=== PATIENT | male | born 1965 | race Caucasian/White ===

== ENCOUNTER 2019-05-09 10:37 | Emergency (ER) | payer OTHER ==
[2019-05-09 10:45] VITALS: BP 177/95; PULSE 67; TEMP 97.7; BMI 28.3
--- NOTE | 2019-05-09 11:10 | PDOC ---
History of Present Illness - General Chief Complaint: Pain Stated Complaint: RT FOOT PAIN Time Seen by Provider: 05/09/19 10:56 History Source: Patient Exam Limitations: No Limitations Past History - Travel Traveled outside of the country in the last 30 days: No Close contact w/someone who was outside of country & ill: No - Past Medical History Allergies/Adverse Reactions: Allergies Allergy/AdvReac Type Severity Reaction Status Date / Time No Known Allergies Allergy Verified 05/09/19 10:41 Home Medications: Ambulatory Orders Acetaminophen [Tylenol] 650 mg PO Q6H #60 capsule 05/09/19 Clotrimazole [Lotrimin 1% Cream -] 1 applic TP BID #1 tube 05/09/19 COPD: No - Suicide/Smoking/Psychosocial Hx Smoking History: Never smoked Review of Systems - Review of Systems Able to Perform ROS?: Yes Comments:: 05/09/19 11:10 CONSTITUTIONAL: Absent: fever, chills, diaphoresis, generalized weakness, malaise, loss of appetite MUSCULOSKELETAL: Present: R sided foot pain Absent: myalgia, joint swelling SKIN: Absent: rash, itching, pallor NEUROLOGIC: Absent: headache, focal weakness or paresthesias, dizziness, unsteady gait, seizure, mental status changes, bladder or bowel incontinence PSYCHIATRIC: Absent: anxiety, depression, suicidal or homicidal ideation, hallucinations. Is the patient limited Cymro proficient: No *Physical Exam - Vital Signs Last Vital Signs Temp Pulse Resp BP Pulse Ox 97.7 F 67 16 177/95 H 100 05/09/19 10:41 05/09/19 10:41 05/09/19 10:41 05/09/19 10:41 05/09/19 10:41 - Physical Exam Comments: 05/09/19 11:10 GENERAL: The patient is awake, alert, and fully oriented, in no acute distress. HEAD: Normal with no signs of trauma. EYES: Pupils equal, round and reactive to light, extraocular movements intact, sclera anicteric, conjunctiva clear. EXTREMITIES: TTP of the R heel. Negative Sky test. No TTP of the achilles tendon, lateral/medial malleolus. Normal range of motion, no edema. NEUROLOGICAL: Normal speech, normal gait. PSYCH: Normal mood, normal affect. SKIN: Fungal infection to R bottom foot. Warm, Dry, normal turgor, no rashes or lesions noted. Medical Decision Making - Medical Decision Making 05/09/19 11:56 the patient is a 54-year-old male with no past medical history presents to the ER today with right heel pain. 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 He states that the pain is been bothering for the last 2 weeks. He states that when he is sitting down does not hurt however when he stands up and walks he has the pain in his heel. Denies trauma, falling. Denies numbness and tingling and weakness to the affected extremity A/P: Right heel pain, athlete's foot On exam patient with a fungal infection to the bottom of the foot. Lotrimin prescribed Tenderness to palpation of the heel of the right foot however no tenderness to the Achilles tendon. Negative Sky test X-ray of the foot shows no acute fractures Discharge home with podiatry follow-up I discussed the physical exam findings, ancillary test results and final diagnoses with the patient. I answered all of the patient's questions. The patient was satisfied with the care received and felt comfortable with the discharge plan and treatment plan. The Patient agrees to follow up with the primary care physician/specialist within 24-72 hours. Return precautions were given. *DC/Admit/Observation/Transfer Diagnosis at time of Disposition: Heel pain Qualifiers: Laterality: right Qualified Code(s): M79.671 - Pain in right foot - Discharge Dispostion Disposition: HOME Condition at time of disposition: Stable Decision to Admit order: No - Prescriptions Prescriptions: Acetaminophen [Tylenol] 650 mg PO Q6H #60 capsule Clotrimazole [Lotrimin 1% Cream -] 1 applic TP BID #1 tube - Referrals Referrals: Isaiah Araiza MD [Primary Care Provider] - Margarito Dewey DPM [Staff Physician] - - Patient Instructions Printed Discharge Instructions: DI for Foot Pain Additional Instructions: You were evaluated for your foot pain Your x-ray was negative fracture Take the tylenol as directed for pain Use the lotramin cream twice a day to help with your foot fungus Change your socks daily 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 A referral has been provided Return to the ER for any new or worsening symptoms Te evaluaron para el dolor en el pie La radiografa fue reymundo fractura negativa [place] el tylenol segn las instrucciones para el dolor Usa la crema de lotramin dos veces al da para ayudar con el hongo del pie Cmbiate los calcetines todos los starks Haz un seguimiento con tu podlogo esta semana. Se plaza proporcionado reymundo remisin Regreso a Urgencias para cualquier sntoma nuevo o que empeore - Post Discharge Activity Forms/Work/School Notes: Back to Work
[2019-05-09] MEDS ORDERED: IBUPROFEN 600 MG TABLET (FP) PO ONE ×2 (11:30→11:34)
== END 2019-05-09 12:30 | disposition home or self-care (01) ==
LOC: JERFT 10:37
DX: M79.671 Pain in right foot (principal)
CPT/HCPCS: 73630-TC-RT-FY; 99283-25